=== PATIENT | female | born 1945 | race Caucasian/White ===

== ENCOUNTER 2018-11-26 11:49 | Outpatient (CLI) | payer MEDICARE, BC | END 2018-11-26 11:50 | disposition home or self-care (01) | LOC: LABBT 11:49 | PROVIDERS: ATTEND Neurological Surgery | DX: Z01.810 Encounter for preprocedural cardiovascular examination (principal); M48.061 Spinal stenosis, lumbar region without neurogenic claudication | CPT/HCPCS: 93005; 93010 ==

== ENCOUNTER 2018-12-02 06:51 | Day surgery (SDC) | payer MEDICARE, BC ==
[2018-11-26 12:00] VITALS: BMI 26.5
--- NOTE | 2018-12-01 15:33 | HP ---
HISTORY OF PRESENT ILLNESS: Ms. Hopkins is a very pleasant 73-year-old woman, here today for discussion of what sounds to be significant lower back pain and severe neurogenic claudication symptoms. She has had an MRI from [facility] that reveals rather profound degree of central canal stenosis at L4-L5 PAST MEDICAL HISTORY: Significant for hypertension, hypercholesterolemia, coronary artery disease. CURRENT MEDICATIONS: Losartan, diltiazem, potassium, hydroxychloroquine, simvastatin, aspirin, vitamin D. PAST SURGICAL HISTORY: section x2, unspecified foot surgery, unspecified hand surgery, unspecified left shoulder surgery. ALLERGIES: TETRACYCLINE AND BACTRIM OINTMENT. PHYSICAL EXAMINATION: GENERAL: The patient is alert and oriented x3. EXTREMITIES: Gait is significantly antalgic. Lower extremities: Lower extremity reveals full strength bilaterally at all muscle groups in lower extremities. ASSESSMENT: Lumbar stenosis with neurogenic claudication. PLAN: Dr. Gottlieb met with the patient, reviewed imaging and advocated for an L4-L5 decompression. He explained to the patient the risks, benefits, and alternatives to the procedure. The patient expressed understanding and elected to move forward with surgery as discussed. I do believe the patient is mentally competent and capable of making medical decisions for herself. We will move forward with surgery as planned. Job ID: [id number]
[2018-12-02] MEDS ORDERED: ceFAZolin Sodium (SDC) 2 GM/100 ML BAG ONE ×2 (10:33→15:17)
[2018-12-02] MEDS ORDERED: Bupivacaine HCl 0.5%/Epinephrine 1:200,000/PF 30 ml Vial ONE (11:00)
[2018-12-02] MEDS ORDERED: Fentanyl 100 MCG/2 ML VIAL ONE (11:07)
[2018-12-02] MEDS ORDERED: HYDROmorphone 2 MG/ML VIAL ONE (12:41)
--- NOTE | 2018-12-02 12:56 | OP ---
DATE OF PROCEDURE: 12/02/2018 SHANK TURNER: Jonathan Arreola PA-C INDICATIONS: Pain. DIAGNOSIS: Lumbar stenosis. PROCEDURE PERFORMED: L4-L5 lumbar decompression. ANESTHESIA: General. DESCRIPTION OF PROCEDURE: The patient was brought into the operating room and placed under general anesthesia. She was flipped from the supine to prone position on the operating room table. A linear incision was planned over the L4-L5. After prepping and draping and after an appropriate preoperative pause, incision was created. After identifying the appropriate level, high-speed cutting drill bit as well as 2, 3, and 4 mm Kerrisons were used to perform a laminectomy at L4-L5. The medial aspect of the facet joint on the right at L4-L5 was removed in part due to its compromise of the spinal canal. After decompressing the segment, the wound was irrigated. Hemostasis was maintained throughout. The wound was then closed in anatomic layers and a pressure dressing was applied. There were no known procedural complications. Job ID: [id number]
[2018-12-02] MEDS ORDERED: Tamsulosin HCl 0.4 MG CAP ONE (13:17)
[2018-12-02] MEDS ORDERED: Ondansetron PF 4 MG/2 ML Vial ONE ×2 (13:34→16:29)
[2018-12-02] MEDS ORDERED: Promethazine HCl 25 MG/ML VIAL ONE (14:16)
[2018-12-02] MEDS ORDERED: Ondansetron ODT 4 MG TAB ONE (16:04)
[2018-12-02] MEDS ORDERED: Dexamethasone 20 MG/5 ML VIAL ONE (16:29)
[2018-12-02] MEDS ORDERED: Lidocaine 1% PF 5 ML VIAL ONE (16:29)
[2018-12-02] MEDS ORDERED: PHENYLEPHRINE-NS 100 MCG/ML 10 ML SYRINGE ONE (16:29)
[2018-12-02] MEDS ORDERED: Rocuronium Bromide 10 MG/ML (10ML VIAL) ONE (16:29)
[2018-12-02] MEDS ORDERED: PROPOFOL 200 MG/20 ML VIAL ONE (16:29)
[2018-12-02] MEDS ORDERED: Glycopyrrolate 0.2 MG/ML 5 ML SYRINGE ONE (16:29)
== END 2018-12-02 16:11 | disposition home or self-care (01) ==
LOC: SDC 06:51
PROVIDERS: ATTEND Neurological Surgery
PROC: 0ST20ZZ Resection of Lumbar Vertebral Disc, Open Approach (ICD-10-PCS; principal; 2018-12-02)
DX: M48.061 Spinal stenosis, lumbar region without neurogenic claudication (principal); I10 Essential (primary) hypertension; E78.00 Pure hypercholesterolemia, unspecified; I25.10 Atherosclerotic heart disease of native coronary artery without angina pectoris; Z79.82 Long term (current) use of aspirin; Z79.899 Other long term (current) drug therapy; Z88.1 Allergy status to other antibiotic agents
CPT/HCPCS: 76000; J0670; J0690; J1100; J1170; J2001; J2405; J2550; J2704; J3010; Q0162

== ENCOUNTER 2019-11-12 05:15 | Outpatient (CLI) | payer MEDICARE, BC, OTHER ==
[2019-11-13 12:33] LABS: SARS-CoV-2 MS2 Positive; SARS-CoV-2 N Gene Negative; SARS-CoV-2 S Gene Negative; SARS-CoV-2 orf1ab Negative
== END 2019-11-12 05:16 | disposition home or self-care (01) ==
LOC: LABBT 05:15
PROVIDERS: ATTEND Neurological Surgery
DX: Z01.818 Encounter for other preprocedural examination (principal); Z11.59 Encounter for screening for other viral diseases; M54.16 Radiculopathy, lumbar region
CPT/HCPCS: 93005; U0003; 87635; 93010

== ENCOUNTER 2019-11-17 06:55 | Day surgery (SDC) | payer MEDICARE, BC ==
[2019-11-11 14:27] VITALS: BMI 25.0
--- NOTE | 2019-11-16 19:19 | HP ---
HISTORY OF PRESENT ILLNESS: Ms. Hopkins is a very pleasant 74-year-old woman, who is known to us for prior lumbar decompression last summer, did very well postoperatively, but returns now with recurrent radicular pains in the left lower extremity that best match an L5 pattern. We have a new MRI that shows scoliotic curvature and severe foraminal stenosis to the left at L5 that certainly explains her symptoms. She has been utilizing gabapentin two tabs t.i.d. and this seems to improve the severity of her symptoms, although she has persistent pain and numbness all the way down to the lateral left foot. She has no right lower extremity symptoms to speak of. Examination is deferred secondary to [facility] Telehealth visit. PAST MEDICAL HISTORY: Hypercholesterolemia, anxiety, arthritis, chronic pain syndrome, and hypertension. PAST SURGICAL HISTORY: section x2, unspecified shoulder surgery, unspecified hand surgery, unspecified foot surgery, and lumbar decompression. ALLERGIES: TETRACYCLINE AND BACTRIM OINTMENT. CURRENT MEDICATIONS: 1. Losartan. 2. Diltiazem. 3. . 4. Potassium. 5. Hydrochlorothiazide. 6. Simvastatin. 7. Aspirin. 8. Gabapentin. ASSESSMENT: Lumbar radiculopathy. PLAN: Dr. Gottlieb met with the patient, reviewed imaging, and advocated for a left L5 foraminotomy and facetectomy. He explained to the patient the risks, benefits, and alternatives of the procedure. The patient expressed understanding and elected to move forward with surgery as discussed. I do believe that the patient is mentally competent and capable of making medical decisions for herself. We will move forward with surgery as planned. Job ID: [id number]
[2019-11-17] MEDS ORDERED: Midazolam HCl 2 mg/2 ml Vial ONE (08:03)
[2019-11-17] MEDS ORDERED: Bupivacaine PF 0.5% 30 ML VIAL ONE (08:19)
[2019-11-17] MEDS ORDERED: EPINEPHrine 1 MG/ML AMP ONE (08:19)
[2019-11-17] MEDS ORDERED: Fentanyl 100 MCG/2 ML VIAL ONE (08:25)
[2019-11-17] MEDS ORDERED: SUGAMMADEX SODIUM 200 MG/2 ML VIAL ONE (09:43)
--- NOTE | 2019-11-17 10:42 | OP ---
DATE OF PROCEDURE: 11/17/2019 GEOSPATIAL IMAGERY INTELLIGENCE ANALYST: Jonathan Arreola PA-C INDICATION: Pain. DIAGNOSIS: Lumbar radiculopathy. PROCEDURE PERFORMED: Left L5 foraminotomy, medial facetectomy, decompression of the exiting left L5 nerve root. ANESTHESIA: General. DESCRIPTION OF PROCEDURE: The patient was brought into the operating room and placed under general anesthesia. She was flipped from the supine to prone position on the operating room table. A linear incision was planned over the L5 segment. After prepping and draping and after an appropriate preoperative pause, the incision was created. The soft tissues were swept left of midline and a self-retaining retractor was placed. After confirming the appropriate level with C-arm fluoroscopy, high-speed cutting drill bit as well as 2, 3, and 4 mm Kerrisons were used to perform a laminectomy along the inferior aspect of L5 on the left. The laminectomy was extended laterally to encompass the medial aspect of the facet joint in order to perform more generous foraminotomy of the exiting L5 nerve root. After completing the decompression, the wound was irrigated. Hemostasis was maintained throughout. The wound was then closed in anatomic layers, and a pressure dressing was applied. There were no known procedural complications. Job ID: [id number]
[2019-11-17] MEDS ORDERED: Esmolol 100 MG/10 ML VIAL ONE (10:51)
[2019-11-17] MEDS ORDERED: Dexamethasone 20 MG/5 ML VIAL ONE (10:51)
[2019-11-17] MEDS ORDERED: PROPOFOL 200 MG/20 ML VIAL ONE (10:51)
[2019-11-17] MEDS ORDERED: Lidocaine 1% PF 5 ML VIAL ONE (10:51)
[2019-11-17] MEDS ORDERED: Ondansetron PF 4 MG/2 ML Vial ONE (10:51)
[2019-11-17] MEDS ORDERED: Rocuronium Bromide 10 MG/ML (10ML VIAL) ONE (10:51)
[2019-11-17] MEDS ORDERED: Ketorolac Tromethamine 30 MG/ML VIAL ONE (10:51)
== END 2019-11-17 13:45 | disposition home or self-care (01) ==
LOC: SDC 06:55
PROVIDERS: ATTEND Neurological Surgery
PROC: 01NB0ZZ Release Lumbar Nerve, Open Approach (ICD-10-PCS; principal; 2019-11-17)
DX: M54.16 Radiculopathy, lumbar region (principal); M48.061 Spinal stenosis, lumbar region without neurogenic claudication; M41.86 Other forms of scoliosis, lumbar region; E78.00 Pure hypercholesterolemia, unspecified; F41.9 Anxiety disorder, unspecified; M19.90 Unspecified osteoarthritis, unspecified site; G89.4 Chronic pain syndrome; I10 Essential (primary) hypertension; Z79.82 Long term (current) use of aspirin; Z79.899 Other long term (current) drug therapy; Z88.1 Allergy status to other antibiotic agents; Z88.2 Allergy status to sulfonamides
CPT/HCPCS: 76000; J0171; J0690; J1100; J1885; J2250; J2405; J2704; J3010; S0020